=== PATIENT | male | born 1975 | race Caucasian/White ===

== ENCOUNTER 2020-08-01 11:32 | Observation (INO) | payer OTHER, SELFPAY ==
[2020-08-01] VITALS (8 sets, daily range): BP systolic 127–145; BP diastolic 72–102; PULSE 71–95; RESP 16–22; TEMP 36.3–36.9; O2SAT 98–100; BMI 40.0; BMI 39.3
--- NOTE | 2020-08-01 11:39 | CT_ITS ---
STUDY: CT HEAD STROKE PROTOCOL W/O CONTRAST INJECTION REASON FOR EXAM: Male, 44 years old. Neuro deficit, acute, stroke suspected. 3 day history of intermittent left temporal headaches. Left facial numbness. RADIATION DOSAGE (If Supplied By Facility): CTDIvol = ( 44.99 ) mGy, DLP = ( 745.49 ) mGycm TECHNIQUE: Transaxial CT imaging of the brain was performed without administration of intravenous contrast material. Individualized dose optimization techniques were used for this CT. COMPARISON: No relevant priors. FINDINGS: Normal soft tissue structures. Normal calvarium. Normal size ventricles and extra-axial spaces for the patient''s age. Normal white matter tracts of the cerebral hemispheres. Questionable focal hypodensity in the right basal ganglia. Normal brainstem. Normal cerebellum. There is no intracranial hemorrhage. There are no findings of an acute ischemic infarction. Normal visualized paranasal sinuses. CT/STROKE Brain/Head without Cont IMPRESSION: Questionable focal area decreased attenuation in the right basal ganglia. N.B. : The above information has been verbally conveyed by Eduardo Abbasi MD to Kendall Ireland on 08/01/2020 12:12:48 (ET). Electronically Signed: Eduardo Abbasi MD at 12:13 EDT , Service support ,
--- NOTE | 2020-08-01 11:39 | EKG12_ITS ---
Test Reason : NEURO Blood Pressure : / mmHG Vent. Rate : 072 BPM Atrial Rate : 072 BPM P-R Int : 152 ms QRS Dur : 102 ms QT Int : 386 ms P-R-T Axes : 018 024 016 degrees QTc Int : 422 ms Normal sinus rhythm Normal ECG Confirmed by JOSELO ODOM, AMRIK ([id number]), editor newspaper GABRIELLA KUO ([id number]) on 08/03/2020 1:07:36 PM Referred By: ZAHRA/JEAN MARIE Confirmed By:AMRIK JOSUE MD
--- NOTE | 2020-08-01 11:40 | CT_ITS ---
STUDY: CTA HEAD AND NECK WITH CONTRAST REASON FOR EXAM: Male, 44 years old. Neuro deficit, acute, stroke suspected -- CO intermittent significant headache left side RADIATION DOSAGE (If Supplied By Facility): CTDIvol = ( 16.24 ) mGy, DLP = ( 789.93 ) mGycm TECHNIQUE: CT angiography was performed with a multi-detector CT scanner. Data acquisition was obtained from the skull base through the vertex following intravenous administration of IV 100mL Isovue-[id number]. MIP images were reconstructed from the axial data set. Post-processing of the angiographic images was performed, with multiplanar reformation and 3D reconstruction. Individualized dose optimization techniques were used for this CT. COMPARISON: No relevant priors. FINDINGS: Normal bilateral petrous carotid arteries. Normal right cavernous carotid artery with a normal supraclinoid bifurcation. Normal left cavernous carotid artery with a normal supraclinoid bifurcation. Normal right A1 segments of the anterior cerebral artery. Normal left A1 segments of the anterior cerebral artery. Normal intact anterior communicating artery (ACOM). Normal bilateral A2 segments of the anterior cerebral arteries. Normal right M1 and M2 segments of the middle cerebral arteries, with a normal M1 bifurcation. Normal left M1 and M2 segments of the middle cerebral arteries, with a normal M1 bifurcation. Normal right posterior communicating artery (PCOM). Normal left posterior communicating artery (PCOM). Normal bilateral vertebral arteries. Normal basilar artery with a normal basilar bifurcation. The visualized bilateral superior cerebellar (SCA) arteries are normal. Normal bilateral P1, P2 and visualized P3 segments of the posterior cerebral arteries. There is no demonstrated aneurysm of the [place] of [place]. There is no demonstrated abnormality of the visualized brain. AORTIC ARCH: Normal visualized aortic arch. Normal origins of the brachiocephalic, left common carotid, and left subclavian arteries. RIGHT CAROTID ARTERIES: Normal right common carotid artery (CCA). Normal right common carotid bulb. Normal origin of the right internal carotid (ICA) artery without a hemodynamically significant stenosis. Normal visualized cervical portion of the right internal carotid artery. Normal origin of the right external carotid artery (ECA). LEFT CAROTID ARTERIES: Normal left common carotid artery (CCA). Normal left common carotid bulb. Normal origin of the left internal carotid (ICA) artery without a hemodynamically significant stenosis. Normal visualized cervical portion of the left internal carotid artery. Normal origin of the left external carotid artery (ECA). VERTEBRAL ARTERIES: There is enhancement within the bilateral vertebral arteries with a small right vertebral artery, and a dominant left vertebral artery. CT/STROKE CTA Head AND Neck W/Con IMPRESSION: Normal CTA Head and neck with contrast. N.B. : The above information has been verbally conveyed by Eduardo Abbasi MD to Kendall Ireland on 08/01/2020 12:15:24 (ET). Electronically Signed: Eduardo Abbasi MD at 12:16 EDT , Service support ,
--- NOTE | 2020-08-01 11:41 | ED.VIS.STROK ---
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 Negative for: Nausea, Vomiting, Chest Pain Narrative: Is a middle-age male with history of hypertension on no medication and BMI of 40 who was sent to the emergency department from [facility] for evaluation. He presents with complaint of left-sided head and facial tingling and left hand tingling. Patient does have symptoms of bilateral hand tingling in the past. He has never been diagnosed with carpal tunnel syndrome. He denies double vision or loss of vision. He has had intermittent blurred vision. He denies problems with balance or coordination. He denies trouble with speech or swallowing. He denies weakness in his extremities. There is no significant past family history of subarachnoid hemorrhage or stroke at early age. There is history of heart disease. Prior similar symptoms: No Recent Illness/Hospitalization: No - Past Medical History (1) History of hypertension Status: Acute (2) BMI 40.0-44.9, adult Status: Acute Past Medical History - Allergies and Home Meds Allergies/Adverse Reactions: Allergies No Known Allergies Allergy (Verified 08/01/20 11:32) Primary Care Physician: Gama Kwon MD [Primary Care Provider] - Prior records reviewed: Yes - That accompanied him from the [facility] [place] Surgical History: noncontributory Lives: Spouse/ Significant Other Smoking Status: Never smoker Alcohol: Rare Drugs: None Review of Systems General: Denies: Chills, Fever, Malaise, Subjective, Sweats Eyes: Reports: Blurred Vision - bilaterally. Denies: Visual changes - bilaterally, Diplopia ENT: Denies: Bilateral ear pain, Rhinorrhea, Sore throat Cardiovascular: Denies: Chest pain, Palpitations Respiratory: Denies: Dyspnea, Cough, Dyspnea on exertion Gastrointestinal: Denies: Abdominal pain, Nausea, Vomiting, Diarrhea, Melena, Hematochezia Genitourinary: Denies: Dysuria, Hematuria, Frequency Musculoskeletal: Denies: Myalgias, Arthralgias, Neck pain, Back pain, Swelling, Extremity Pain Skin: Denies: Rash, Wounds Neurological: Reports: Headache - Sided that is awakened him from sleep., Parasthesia, Numbness, - - This tingling right side of head and face and left hand. Endocrine: Denies: Polyuria, Polydipsia Hematologic: Denies: Easy bruising, Easy bleeding STROKE Vital Signs/Narrative: Vital Signs Temp Pulse Resp BP Pulse Ox 08/01/20 11:32 97.4 F L 73 18 137/95 H 100 Inital Vital Signs reviewed: Yes - NIHSS Initial 1a Level of Consciousness: 0 1b LOC Questions (Score 2 if aphasic/stupor): 0 1c LOC Commands (Only score 1st attempt): 0 2 Best Gaze (If aphasic, use reflexive mvmts.): 0 3 Visual: 0 4 Facial Palsy: 1 5 Motor Arm Right (UN = amputation/fusion): 0 5 Motor Arm Left: 0 6 Motor Leg Right: 0 6 Motor Leg Left: 0 7 Limb ataxia (Only + if out of proportion): 0 8 Sensory (Aphasia/stupor=0 or 1, coma=2): 1 9 Best Language: 0 10 Dysarthria (mute, coma=2, intubated=UN): 0 11 Extinction and Inattention (only scored if +): 0 Total Score: 2 General: Well nourished, Well developed, Obese Head: Normocephalic, Atraumatic Eyes: Perrl, EOMI, - - There is no APD.. Negative for: Pale conjunctiva, Scleral icterus ENT: Moist mucous membranes, No rhinorrhea Neck: Supple, Nontender, No lymphadenopathy, No JVD Cardiovascular: Regular rate, Regular rhythm, No murmurs, Normal S1, Normal S2 Respiratory: No distress, CTA bilaterally, Chest nontender Abdomen: Soft, Nontender, Nondistended, Normal bowel sounds Extremities: Nontender, No edema Skin: Normal color, No rash, No Trauma. Negative for: Cyanosis, Diaphoresis, Jaundice Neurological: Alert, Oriented x3, Cranial nerves II-XII grossly intact, Normal Strength, Normal Sensation, Normal Gait Psychological: Normal affect Diagnostic/Tx/Re-eval I received a call from the radiologist at 1215 the patient has a small right basal ganglion infarct. Impressions Brain CT 08/01/20 11:39 IMPRESSION: Questionable focal area decreased attenuation in the right basal ganglia. N.B. : The above information has been verbally conveyed by Eduardo Abbasi MD to [facility] on 08/01/2020 12:12:48 (ET). Electronically Signed: Eduardo Abbasi MD at 12:13 EDT , Service support , ADDENDUM: 08/01/20 1220 IMPRESSION: Questionable focal area decreased attenuation in the right basal ganglia. N.B. : The above information has been verbally conveyed by Eduardo Abbasi MD to [facility] on 08/01/2020 12:12:48 (ET). Electronically Signed: Eduardo Abbasi MD at 12:13 EDT , Service support , Head/Neck CTA 08/01/20 11:40 IMPRESSION: Normal CTA Head and neck with contrast. N.B. : The above information has been verbally conveyed by Eduardo Abbasi MD to [facility] on 08/01/2020 12:15:24 (ET). Electronically Signed: Eduardo Abbasi MD at 12:16 EDT , Service support , ADDENDUM: 08/01/20 1223 IMPRESSION: Normal CTA Head and neck with contrast. N.B. : The above information has been verbally conveyed by Eduardo Abbasi MD to [facility] on 08/01/2020 12:15:24 (ET). Electronically Signed: Eduardo Abbasi MD at 12:16 EDT , Service support , Chest X-Ray 08/01/20 12:00 IMPRESSION: Normal x-ray examination of the chest. Electronically Signed: Eduardo Abbasi MD at 12:18 EDT , Service support , 08/01/20 11:39 STROKE Brain/Head without Cont [CT] Stat 08/01/20 11:40 STROKE CTA Head AND Neck W/Con [CT] Stat 08/01/20 12:00 Chest 1 View [RAD] Stat Laboratory Results 08/01/20 08/01/20 08/01/20 11:45 11:49 11:49 WBC 4.9 RBC 5.12 Hgb 15.2 Hct 44.5 MCV 86.9 MCH 29.7 MCHC 34.2 RDW Std Deviation 37.7 RDW Coeff of Jolly 11.9 Plt Count 285 MPV 8.9 Immature Gran % (Auto) 0.600 Neut % (Auto) 74.4 H Lymph % (Auto) 19.1 [place] % (Auto) 4.7 Eos % (Auto) 0.4 Baso % (Auto) 0.8 Absolute Neuts (auto) 3.7 Absolute Lymphs (auto) 0.94 Nucleated RBC % 0 PT 12.7 INR 1.0 APTT 24.2 Sodium Potassium Chloride Carbon Dioxide Anion Gap BUN Creatinine Estim Creat Clear Calc Est GFR (MDRD) Af Amer Est GFR (MDRD) Non-Af BUN/Creatinine Ratio Glucose Calcium Troponin I POC Glucose 113 H 08/01/20 11:49 WBC RBC Hgb Hct MCV MCH MCHC RDW Std Deviation RDW Coeff of Jolly Plt Count MPV Immature Gran % (Auto) Neut % (Auto) Lymph % (Auto) [place] % (Auto) Eos % (Auto) Baso % (Auto) Absolute Neuts (auto) Absolute Lymphs (auto) Nucleated RBC % PT INR APTT Sodium 137 Potassium 4.3 Chloride 104 Carbon Dioxide 27.0 Anion Gap 6 BUN 10 Creatinine 1.19 Estim Creat Clear Calc 86.13 Est GFR (MDRD) Af Amer 86 Est GFR (MDRD) Non-Af 71 BUN/Creatinine Ratio 8.4 L Glucose 117 H Calcium 9.1 Troponin I < 0.015 POC Glucose Patient and were informed of results. Hospitalist has been paged. Chest X-Ray - ED: 1 View, Read by ED Physician, Normal, Heart, Lungs, Mediastinum, Bony Structures, No Acute Disease, - - Slight atelectasis right mid lung field ED Disposition - Plan for ED Patient: Disposition: Acute Care Hospital [facility] Diagnosis: Infarction of right basal ganglia Referrals: Gama Kwon MD [Primary Care Provider] -
[2020-08-01 11:51] LABS: Bedside Glucose 113 mg/dL (70-110)
[2020-08-01 12:00] LABS: Absolute Lymphocyte Count 0.94 X10^3/uL (0.83-4.51); Absolute Neutrophil Count 3.7 X10^3/uL (2.0-7.7); Basophil# 0.04 X10^3/uL; Basophil% 0.8 % (0-1); Eosinophil# 0.02 X10^3/uL; Eosinophils% 0.4 % (0-5); Hematocrit 44.5 % (40-54); Hemoglobin 15.2 g/dL (13.0-16.5); Lymphocyte # 0.94 X10^3/ul (0.83-4.51); Lymphocyte % 19.1 % (19-41); Mean Corp Hgb Conc 34.2 g/dL (32-36); Mean Corpuscular Hgb 29.7 pg (27.0-32.0); Mean Corpuscular Volume 86.9 fL (80-94); Mean Platelet Vol. 8.9 fl (6.2-12.0); Monocyte# 0.23 X10^3/uL; Monocyte% 4.7 % (0-10); NRBC Flagged by Analyzer 0 % (0-5); Neutrophil # 3.65 X10^3/uL (2.7-7.7); Neutrophil % 74.4 % (47-70); Platelet Count 285 K/mm3 (150-450); RBC Distribution Width CV 11.9 % (11.6-14.6); RBC Distribution Width SD 37.7 fl (35.1-43.9); Red Blood Count 5.12 M/mm3 (4.6-6.2); White Blood Count 4.9 K/mm3 (4.4-11.0)
--- NOTE | 2020-08-01 12:00 | RAD_ITS ---
STUDY: X-RAY CHEST REASON FOR EXAM: Male, 44 years old. Neuro deficit, acute, stroke suspected . 3 day history of intermittent headaches and left facial numbness. TECHNIQUE: Single AP portable view of the chest. COMPARISON: None. FINDINGS: EKG electrodes are seen. The lungs are clear and expanded. There is no demonstrated pleural abnormality. Normal size heart. Normal mediastinum and malik. Normal visualized pulmonary arteries. Normal visualized aortic arch and descending thoracic aorta. Normal visualized thoracic spine. Normal visualized ribs, clavicles, and shoulders. There is no demonstrated abnormality of the visualized soft tissue structures of the upper abdomen. RAD/Chest 1 View IMPRESSION: Normal x-ray examination of the chest. Electronically Signed: Eduardo Abbasi MD at 12:18 EDT , Service support ,
[2020-08-01 12:06] LABS: Prothrombin Time (Protime)PT. 12.7 SECONDS (11.7-14.9)
[2020-08-01 12:07] LABS: Partial Thromboplast Time 24.2 Seconds (24.1-36.2)
[2020-08-01 12:13] LABS: Anion Gap 6 (5-15); BUN 10 mg/dL (7-18); BUN/Creat Ratio 8.4 RATIO (10-20); Calcium,Total 9.1 mg/dL (8.5-10.1); Chloride 104 mmol/L (98-107); Creatinine, Serum 1.19 mg/dL (0.70-1.30); EST Glomerular Filtration Rate 71 mL/min (>60); Est Glom Filt Rate - Afr Amer 86 mL/min (>60); Estimated Creatinine Clearance 86.13 ml/min; Glucose 117 mg/dL (74-106); Potassium 4.3 mmol/L (3.5-5.1); Sodium Level 137 mmol/L (136-145)
--- NOTE | 2020-08-01 13:48 | MRI_ITS ---
STUDY: MRI BRAIN WITHOUT CONTRAST REASON FOR EXAM: Male, 44 years old. stroke -- right basal ganglia, f/u to ct brain TECHNIQUE: Standardized multiplanar fat and water weighted pulse sequences were obtained. COMPARISON: 08/01/2020. FINDINGS: No intracranial mass, mass effect or midline shift. No hemorrhage, territorial infarct or acute ischemia. Normal size of the ventricles and extra-axial spaces for the patient''s age. Normal white matter tracts of the supratentorial brain. Normal bilateral basal ganglia. Specifically, no abnormality in the right basal ganglia. Normal thalami. There is no extra-axial fluid accumulation. Normal flow voids within the major intracranial circulation suggesting patency by spin echo criteria. Normal sella turcica, pituitary gland, infundibular stalk, optic chiasm and hypothalamus. Normal midbrain, hilario and medulla. Normal cerebellum. Normal basal cisterns. Normal bilateral temporal bones. Normal bilateral internal auditory canals. Normal visualized paranasal sinuses. Normal calvarium and skull base. Normal visualized soft tissue structures. MRI/Brain without Contrast IMPRESSION: Unremarkable unenhanced MRI of the brain. Electronically Signed: Laura Lund MD at 20:12 EDT Tel , Service support ,
--- NOTE | 2020-08-01 18:51 | NURSING ---
Vitals and NIH late d/t pt off floor for MRI.
--- NOTE | 2020-08-01 19:18 | PCM.HP.STD ---
Problem List (1) Left facial numbness Status: Acute (2) Cephalgia Status: Acute Qualifiers: Headache type: unspecified History of Present Illness Date of Admission: 08/01/20 Chief Complaint: Cephalgia x3 days, left facial numbness The patient is a 44 year old M seen in the emergency room at [facility] with chief complaint of headache x3 days which is predominantly left-sided in nature and also numbness in his left facial area which started this morning. Patient denies any speech or vision difficulties, he denies any focal weakness. Work-up in the emergency room included a CT of the brain was read out as showing a questionable focal area of decreased attenuation in the right basal ganglia, patient CTA of his head neck was unremarkable. Labs revealed normal CBC, chemistry profile was unremarkable and his chest x-ray was normal. Patient was placed in observation status on PCU, NIH scores will be monitored-his NIH score in the emergency room was 0. Patient will undergo an MRI of the brain without contrast today, I talked at length with him and his and told him that if his MRI was positive he would have to undergo further testing including an ultrasound of the heart and be placed on medication. Past Medical History Allergies No Known Allergies Allergy (Verified 08/01/20 11:32) Home Medications: Ambulatory Orders Medication Instructions Recorded Albuterol Inhaler [Ventolin Hfa 2 puff INHALATION Q6H PRN PRN 08/01/20 (SP)] Aspirin 81 mg PO DAILY 08/01/20 Fluticasone 0.05% [Flonase Nasal 2 spray NASAL DAILY 08/01/20 [place]] Loratadine/Pseudoephedrine 1 each PO BID PRN 08/01/20 [Claritin-D 12 Hour Tablet] Omeprazole [Prilosec] 20 mg PO DAILY 08/01/20 buPROPion XL [Wellbutrin Xl] 300 mg PO DAILY 08/01/20 busPIRone [Buspar] 7.5 mg PO BID 08/01/20 Surgical History: appendectomy Psychiatric History: Anxiety Lives: Spouse/ Significant Other Smoking Status: Never smoker Tobacco Use: Non-smoker Alcohol: Rare Drugs: None - *Family History Maternal History Items: No pertinent history Paternal History Items: Heart Disease Review of Systems Constitutional: Denies: Anorexia, Chills, Fever, Night Sweats, Malaise, Weakness, Weight Change, Fatigue Eyes: Denies: Cataracts, Conjunctivae Inflammation, Double vision, Drainage HEENT: Denies: Difficulty Swallowing, Dysphasia, Ear Pain, Eye Pain, Hearing Changes, Nasal bleeding, Nasal Congestion, Post Nasal Drip Cardiovascular: Denies: Chest Pain, Claudication, Chest Pressure, Chest Tightness, Edema, Palpitations Respiratory: Denies: Cough, Hemoptysis, Pleuritic Pain, Shortness of Breath, Shortness of breath at rest, Shortness of breath upon exertion Gastrointestinal: Denies: Abdominal Pain, Constipation, Diarrhea, Hematemesis, Hematochezia, Nausea, Melena, Vomiting Genitourinary: Denies: Dysuria, Frequency, Hematuria, Hesitancy, Urgency Musculoskeletal: Denies: Back Pain, Foot Pain, Hand Pain, Joint Pain, Joint stiffness, Joint swelling, Joint Tenderness, Leg Pain Skin: Denies: Dryness, Jaundice, Pruritis, Rash Neurological: Reports: Numbness - Patient complained of numbness over the left facial area times several hours, - - Patient complains of headache x3 days located over the left side of the forehead. Denies: Blurred vision, Double vision, Change in Speech, Slurred speech, Confusion, Difficulty swallowing, Focal weakness, Incoordination, Tingling Psychiatric: Denies: Anxiety, Depression, Homicidal Ideations, Suicidal Ideations Endocrine: Denies: Change in Body Habitus, Heat/ Cold Intolerance, Polydipsia, Polyuria Hematologic/ Lymphatic: Denies: Adenopathy, Anemia, Easy Bruising, Easy Bleeding, Petechiae, Purpura VTE Information - Inpt Only VTE Present on Admission: No VTE Mechan Device Prophylaxis: None VTE Pharm Prophylaxis ordered?: No Reason prophylaxis not ordered:: Treatment Not Indicated Patient Problems: Active and Suspected Problems History of hypertension (Acute) BMI 40.0-44.9, adult (Acute) Infarction of right basal ganglia (Acute) - Physical Exam Vitals/I&O's: Vital Signs Temp Pulse Resp BP Pulse Ox 98.5 F 91 18 145/72 H 98 08/01/20 18:45 08/01/20 18:45 08/01/20 18:45 08/01/20 18:45 08/01/20 18:45 Oxygen Delivery Method Room Air Weight: 127.913 kg Body Mass Index (BMI) 39.3 Finger Stick Blood Glucose 113 Intake and Output for Last 24 Hours 07/30/20 07/31/20 08/01/20 23:59 23:59 23:59 Intake Total 240 / 240 Balance 240 / 240 General: Alert, Oriented x3, Cooperative, No apparent distress, Well developed, Well nourished HEENT: Atraumatic, PERRLA, EOMI, Normocephalic Oral: Moist Mucosa Neck: Supple, No JVD, Trachea Midline, Thyroid Normal Size and Texture Lungs: Clear to auscultation, Normal air movement, No rhonchi, No wheeze, No rales Cardiovascular: Regular rate, Regular Rhythm, Normal S1, Normal S2, No murmurs, PMI Normal, No rub noted, No Gallop Abdomen: Bowel Sounds Present, Soft, Non Tender, Non-Distended Extremities: No clubbing, No cyanosis, No edema, Capillary Refill Less than 3 Seconds Skin: No rashes, No breakdown Musculoskeletal: No Tenderness to Palpation of Joints or Extremities Neurological: Cranial nerves II-XII grossly intact, Neuro grossly intact, Sensory exam intact to light touch and pain, Coordination normal Psych/Mental Status: Normal Affect, Appropriate, Alert and oriented to time, place, person, mood and affect Laboratory Results 08/01/20 11:45: POC Glucose 113 H 08/01/20 11:49: WBC 4.9, RBC 5.12, Hgb 15.2, Hct 44.5, MCV 86.9, MCH 29.7, MCHC 34.2, RDW Std Deviation 37.7, RDW Coeff of Jolly 11.9, Plt Count 285, MPV 8.9, Immature Gran % (Auto) 0.600, Neut % (Auto) 74.4 H, Lymph % (Auto) 19.1, [place] % (Auto) 4.7, Eos % (Auto) 0.4, Baso % (Auto) 0.8, Absolute Neuts (auto) 3.7, Absolute Lymphs (auto) 0.94, Nucleated RBC % 0 08/01/20 11:49: PT 12.7, INR 1.0, APTT 24.2 08/01/20 11:49: Sodium 137, Potassium 4.3, Chloride 104, Carbon Dioxide 27.0, Anion Gap 6, BUN 10, Creatinine 1.19, Estim Creat Clear Calc 86.13, Est GFR (MDRD) Af Amer 86, Est GFR (MDRD) Non-Af 71, BUN/Creatinine Ratio 8.4 L, Glucose 117 H, Calcium 9.1, Troponin I < 0.015 Current Medications Bupropion HCl (Bupropion (Xl) 300 Mg Tablet.Xl) 300 mg PO DAILY TATUM Buspirone HCl (Buspirone 15 Mg Tablet) 7.5 mg PO BID TATUM Hydralazine HCl (Hydralazine 20 Mg/Ml Vial) 5 mg IV Q30M PRN PRN Reason: to maintain BP goals Labetalol HCl (Labetalol (Prefilled) 20 Mg/4 Ml) 10 - 20 mg IV Q10M PRN PRN PRN Reason: to Maintain BP Goals Pantoprazole Sodium (Pantoprazole Sodium 20 Mg Tablet) 20 mg PO DAILY TATUM Sodium Chloride (0.9% Saline Lock 10 Ml Syringe) 10 - 40 ml IV UD PRN PRN Reason: SALINE FLUSH Assessment/Plan All Active Problems History of hypertension (Acute) BMI 40.0-44.9, adult (Acute) Infarction of right basal ganglia (Acute) Left facial numbness (Acute) Cephalgia (Acute) #1 left facial paresthesias-etiology unclear, patient will be placed in observation status on PCU and undergo an MRI of the brain, CT scanning of the brain indicated a possible right basal ganglia infarction. Patient states he takes 1 baby aspirin per day as a prevention for stroke. I talked with him at length about this and told him that if he had no evidence of a previous stroke that a preventative baby aspirin per day was not recommended. #2 essential hypertension by history-patient takes no medication for blood pressure, his blood pressure is being monitored by his PCP #3 anxiety disorder-patient will remain on his present meds #4 cephalgia-it is possible the patient is having a migraine with atypical symptoms, he has not been diagnosed with migraine cephalgia in the past. Patient states he gets headaches frequently due to the fact that he drinks a lot of caffeine type stimulants and the headache goes away after he intakes caffeine or energy drinks. OBSV E&M: 91210 Initial observation care L3
--- NOTE | 2020-08-01 20:20 | DCINST_ITS ---
- Discharge Diagnoses Current Active Problems: Current Active and Chronic Problems History of hypertension (Acute) BMI 40.0-44.9, adult (Acute) Infarction of right basal ganglia (Acute) Left facial numbness (Acute) Cephalgia (Acute) You will use the following diet at home:: No restrictions Your food should be the consistency of: Regular Your liquids should be the consistency of: Regular/Thin Discharge Activity: Return to Normal Activity Weight Bearing Status: Full weight bearing Allergies/Adverse Reactions: Allergies No Known Allergies Allergy (Verified 08/01/20 11:32) Medications to take at Discharge Albuterol Inhaler [Ventolin Hfa] 2 puff INHALATION Q6H PRN PRN 08/01/20 Fluticasone 0.05% [Flonase Nasal [place]] 2 spray NASAL DAILY 08/01/20 Loratadine/Pseudoephedrine [Claritin-D 12 Hour Tablet] 1 each PO BID PRN 08/01/20 Omeprazole [Prilosec] 20 mg PO DAILY 08/01/20 buPROPion XL [Wellbutrin Xl] 300 mg PO DAILY 08/01/20 busPIRone [Buspar] 7.5 mg PO BID 08/01/20 Primary Care Physician: Gama Kwon MD [Primary Care Provider] - Please follow up with your Primary Care Physician in: in one week Test Results: Test results from this visit will be discussed in further detail at your follow- up appointment, if applicable.
--- NOTE | 2020-08-02 09:01 | CASEMGMT ---
SW did not complete a PHQ 9 with patient as per physician he did not have a Stroke or TIA. Lauren Cummins [employer] KRISSY
--- NOTE | 2020-08-04 08:51 | PCM.DC.SUM ---
Discharge Date and Diagnosis - Problem List Patient Problems: Active and Suspected Problems History of hypertension (Acute) BMI 40.0-44.9, adult (Acute) Infarction of right basal ganglia (Acute) Left facial numbness (Acute) Cephalgia (Acute) Date of Admission: 08/01/20 Date of Discharge: 08/01/20 - Primary Discharge Diagnosis Acute Problems: Active Problems #1 left facial paresthesias-etiology unclear #2 essential hypertension by history #3 anxiety disorder #4 cephalgia-etiology unclear, possible migraine Hospital Course and Treatment Operations: None Procedures: None Summary of Care Provided: The patient is a 44 year old M who was seen in the emergency room at [facility] with chief complaint of a 3-day headache which was predominantly left-sided in nature and numbness in the left facial area which started the morning he was seen in the emergency room. Work-up in the emergency room included a CT scan of the brain which was read out as showing a questionable focal area of decreased attenuation in the right basal ganglia, patient's CTA of his head and neck was unremarkable. Patient was placed in observation status on PCU, patient's symptoms resolved, he underwent an MRI of the brain which showed no evidence of infarction Patient was seen and examined on 08/01/2020: On examination he appeared in good health and spirits. Vital signs as documented. Skin warm and dry and without overt rashes. Neck without JVD, neck was supple, trachea midline, thyroid was normal. Lungs clear bilaterally, normal air movement was noted. Heart exam notable for regular rhythm, normal sounds and absence of murmurs, rubs or gallops. Abdomen unremarkable and without evidence of organomegaly, masses, or abdominal aortic enlargement. Bowel sounds are present, abdomen is not distended. Extremities nonedematous, no cyanosis was noted, no clubbing was noted. Neuro: Cranial nerves II through XII are grossly intact, no focal motor deficits were noted, sensation to light touch and pinprick intact, motor exam 5/5 throughout. Psych: Patient is alert and oriented x3, he does not appear anxious or depressed, he does not appear agitated. Patient was discharged home in stable condition on 08/01/2020, it is possible the patient's headache may have been a migraine although he has no history of migraine. He was instructed to follow-up with his physician regarding his blood pressure and hospital follow-up visit. Patient Problems: Active and Suspected Problems History of hypertension (Acute) BMI 40.0-44.9, adult (Acute) Infarction of right basal ganglia (Acute) Left facial numbness (Acute) Cephalgia (Acute) - Physical Exam Vitals/I&O's: Vital Signs Temp Pulse Resp BP Pulse Ox 98.5 F 95 18 145/72 H 98 08/01/20 18:45 08/01/20 19:35 08/01/20 18:45 08/01/20 18:45 08/01/20 18:45 Oxygen Delivery Method Room Air Weight: 127.913 kg Body Mass Index (BMI) 39.3 Finger Stick Blood Glucose 113 Discharge Activity: Return to Normal Activity Weight Bearing Status: Full weight bearing Home Medications: Medications to take at Discharge Albuterol Inhaler [Ventolin Hfa] 2 puff INHALATION Q6H PRN PRN 08/01/20 Fluticasone 0.05% [Flonase Nasal Hughes] 2 spray NASAL DAILY 08/01/20 Loratadine/Pseudoephedrine [Claritin-D 12 Hour Tablet] 1 each PO BID PRN 08/01/20 Omeprazole [Prilosec] 20 mg PO DAILY 08/01/20 buPROPion XL [Wellbutrin Xl] 300 mg PO DAILY 08/01/20 busPIRone [Buspar] 7.5 mg PO BID 08/01/20 Primary Care Physician: Gama Kwon MD [Primary Care Provider] - Please follow up with your Primary Care Physician in: in one week Disposition: Home Minutes spent on discharge:: 30 Patient Condition:: Stable Medical Necessity - Tobacco Use Smoking Status: Never smoker Tobacco Use: Non-smoker Meaningful Use Info Meaningful Use Diagnoses (Choose all that apply): None applicable OBSV E&M: 39285 Observ/hosp same date L3
== END 2020-08-01 21:04 | disposition home or self-care (01) ==
LOC: ED 12:26 → PCU 13:31
PROVIDERS: Admitting Provider Internal Medicine; Emergency Provider Emergency Medicine; PCP Internal Medicine; Visit Provider Internal Medicine
DX: R20.2 Paresthesia of skin (principal); I10 Essential (primary) hypertension; F41.9 Anxiety disorder, unspecified; Z79.899 Other long term (current) drug therapy; Z79.82 Long term (current) use of aspirin; Z86.73 Personal history of transient ischemic attack (TIA), and cerebral infarction without residual deficits; R51.9 Headache, unspecified; R29.702 NIHSS score 2; R20.0 Anesthesia of skin
CPT/HCPCS: 70450; 70496; 70498; 70551; 71045; 80048; 82962; 84484; 85025; 85610; 85730; 93005; 99218; 99285; Q9967; A4216; G0378